=== PATIENT | female | born 1935 | race Caucasian/White ===

== ENCOUNTER 2024-02-09 13:26 | Inpatient (IN) | payer OTHER, SELFPAY ==
[2024-02-09] VITALS (29 sets, daily range): BP systolic 77–125; BP diastolic 36–93; PULSE 67–77; BMI 21.2; BMI 20.8
--- NOTE | 2024-02-09 10:09 | ED.GENMED ---
History of Present Illness
General
Chief Complaint: Heart Rate Problem
Time Seen by Provider: 02/09/24 09:24
History of Present Illness
History of Present Illness:
89-year-old female with history of hyperlipidemia presenting to the emergency department for episode of confusion, lightheadedness, diaphoresis. Symptoms occurred around 5 AM this morning when she got up to go to the bathroom. She tried to go back
to bed, however felt unwell. Denies any known cardiac history. She is not on any blood thinners. Denies associated chest pain or difficulty breathing. Denies any recent fever or illness. Denies abdominal pain or GI symptoms. Denies any
syncopal episode. Denies additional acute medical complaints
Past History
Past History
ED Past Medical History: None
Social History
Personal:
Living: with family
Phy Exam
Physical Exam
Physical Exam:
General: Well-appearing, no clinical signs of dehydration, nontoxic and in no acute distress
HEENT: protecting airway
Neck: appears supple
CV: Irregularly irregular rhythm, alternating between regular and tachycardia
Resp: No accessory muscle use, no increased work of breathing, lungs clear to auscultation bilaterally
Abd: Soft and non-distended, no tenderness to palpation, normal bowel sounds
Extremities: No deformities, no swelling, no erythema
Neuro: alert, no focal neurologic deficit
: deferred
Rectal: deferred
Psych: Normal affect
Skin: Intact
Scores
[id number] Score for Afib Stroke Risk
Age in Years (65=0, 65-74=1, >/=75=2): > or = 75
Sex (Female=+1): Female
Congestive Heart Failure History (Yes=+1): No
Hypertension History (Yes=+1): No
Stroke/TIA/Thromboembolism History (Yes=+2): No
Vascular Disease History (Yes=+1): No
Diabetes Mellitus (Yes=+1): No
Score: 3
Anticoagulation Recommendations: Recommend anticoagulation (as validated in nonvalvular fib)
Course
Orders/Labs/Results
Orders:
Orders
02/09/24 09:11
Electrocardiogram (*1) Urgent
Reason for Study: Palpitations
EKG- Treatment ONCE
02/09/24 09:51
CR Chest - 2 Views Urgent
Comment:
Reason For Exam: irregular HR
02/09/24 10:12
Complete Blood Count/With Diff Urgent
Comprehensive Metabolic Panel Urgent
Magnesium Urgent
NT-proBNP Urgent
PTT Urgent
Prothrombin Time Urgent
TSH Reflex To Free T4 Urgent
Comment: ADD ON
Troponin I Urgent
Diltiazem HCl [Cardizem] 14 mg IV NOW STA
02/09/24 11:03
0.9% Sodium Chloride 250 ml [Nss] 250 ml IV BOLUS
02/09/24 11:04
Add On- LAB Urgent
Tests Added?: TSH, reflex to T4
02/09/24 11:08
CT Head W/o Iv Contrast Urgent
Comment:
Reason For Exam: Confusion, visual disturbance
02/09/24 11:11
Diltiazem 125 mg/125 ml Nss [Cardizem] 125 mg in 125 ml IV NOW
Initial dose in mg/hr, then titrate:: 5
Titrate to keep:: Heart rate 80-100 bpm
Titrate by mg/hr:: 5 mg/hr
Frequency of titrations (minutes):: 15
Maximum dose in mg/hr:: 15
02/09/24 11:15
Apixaban [Eliquis] 2.5 mg PO BID
02/09/24 11:52
Echo 2D MMode Color/Doppler Routine
Reason for Study: New onset atrial fibrillation with RVR
Comment: Check rate prior to study, hold for tachycardia
02/09/24 11:54
Urine Culture Reflexed from UA [Urinalysis Reflex To Culture] Routine
02/09/24 12:30
Apixaban [Eliquis] 2.5 mg PO BID
02/09/24 16:00
Troponin I Routine
Abnormal Lab Results
02/09/24
10:12
WBC 3.2 L 10^3/uL
(4.8-10.8)
MCHC 32.4 L g/dL
(33.0-37.0)
RDW 14.6 H %
(11.5-14.5)
Absolute Lymphs (auto) 0.7 L 10^3/uL
(1.2-3.4)
Monocytes % 16.0 H %
(1.7-9.3)
BUN 21 H mg/dl
(7-17)
Creatinine 1.1 H mg/dL
(0.6-1.0)
Glucose 102 H mg/dl
(70-99)
Troponin I 0.038 H* ng/ml
02/09/24 10:12
02/09/24 10:12
Vital Signs
Initial and Last Documented VS:
Initial Vital Signs
Temp Pulse Resp BP Pulse Ox
97.8 F 55 18 77/52 97
02/09/24 09:12 02/09/24 09:12 02/09/24 09:12 02/09/24 09:12 02/09/24 09:12
Last Documented Vital Signs
Temp Pulse Resp BP Pulse Ox
97.8 F 133 21 83/63 93
02/09/24 09:12 02/09/24 11:30 02/09/24 11:30 02/09/24 11:30 02/09/24 11:30
MDM/Problems Addressed
MDM/Problems Addressed:
89-year-old female presenting to the emergency department for episode of confusion, diaphoresis, dizziness. Vital signs on arrival reported as bradycardia and hypotension, however on evaluation, tachycardic and normotensive.
On exam, patient is well-appearing, no acute distress. Patient appears to be in A-fib with RVR, likely etiology of symptoms. Patient notes that she felt normal yesterday, however her son notes some baseline confusion, so at this time do not feel
comfortable with timeline for cardioversion. Will consult with cardiology and administer diltiazem.
10:50 - Cardiology at bedside
11:50 -cardiology recommending diltiazem drip. Blood pressure was low, starting IV fluids. Also recommending CT brain given report episode of confusion this morning. Plan for admission for continued cardiac workup and monitoring.
*EKG
Interpreted by ED Provider?: Yes
EKG Intrepretation Date: 02/09/24
EKG Intrepretation Time: 01:49
Interpretation: abnormal
Comparison EKG: changes noted (10/28/11)
Heart Rate: 149
Rate: tachycardiac
Rhythm: a-fib (w/RVR)
Keldron: normal axis
Ischemia: no ischemia
*Critical Care Note
Total Time (30-74mins, 75-104mins- exclusive of procedures): 45
comment:
The high probability of a clinically significant, sudden or life threatening deterioration of the cardiovascular, A-fib with RVR system(s) required my full and direct attention, intervention and personal management. The aggregate critical care time
was 40 minutes. This time is in addition to time spent performing reported procedures but includes the following:
[x] Data Review and interpretation
[x] Patient assessment and monitoring of vital signs
[x] Documentation
[x] Medication orders and management
ED Attending Note
-
Portions of this chart may have been created with voice recognition software.� Occasional wrong word or��sound alike� substitutions may have occurred due to the inherent limitations of voice recognition software.
Discharge Plan
Departure
Patient Disposition: Admit
Date of Disposition: 02/09/24
Time of Disposition: 12:33
Presentation/result/management discussed w/ accepting MD/DO: Hospitalist
Condition: Fair
Discharge Problem:
Atrial fibrillation with RVR, Hypotension
Prescriptions:
No Action
naproxen sodium [Aleve] 220 MG tablet
2 tab PO
calcium carbonate-vitamin D3 [Calcium 600 + D(3)] 1 EACH capsule
1 ea PO DAILY
wwnhyrdp-arzs-osvjms-hyalur ac 1 CAP capsule
1 cap PO DAILY
Referrals:
Josiane Hodges MD [Family Provider] -
Interventions
Interventions:
*Risk Screen - Suicide Last Done: 02/09/24 09:50
*General Assessment Last Done: 02/09/24 09:46
*Neglect/Abuse Screening Last Done: 02/09/24 09:50
ED- Fall Risk Assessment Last Done: 02/09/24 09:46
*ED COVID-19 Vaccine History Last Done: 02/09/24 09:46
ED- Cardiac Assessment Last Done: 02/09/24 09:46
ED- Pulmonary Assessment Last Done: 02/09/24 09:46
Discharge Date and Time
Print Language: ARMENIAN
[2024-02-09 10:20] LABS: % Basophils 0.6 % (0-2); % Eosinophils 0.9 % (0-6); % Immature Granulocytes 0.3 % (0-0.5); % Neutrophils 61.2 % (42.2-75.2); Absolute Lymphocytes 0.7 10^3/uL (1.2-3.4); Absolute Monocytes 0.5 10^3/uL (0.1-0.6); Hematocrit 41.1 % (37.0-47.0); Hemoglobin 13.3 g/dL (12.0-16.0); Mean Corp Hgb Conc. 32.4 g/dL (33.0-37.0); Mean Corpuscular Hgb 28.1 pg (27.0-31.0); Mean Corpuscular Volume 86.9 fL (81.0-99.0); Nucleated Red Blood Cells % 0 %; Platelet Count 179 10^3/uL (130-400); Red Blood Cell Count 4.73 10^6/uL (4.20-5.40); Red Cell Dist. Width 14.6 % (11.5-14.5); White Blood Cell Count 3.2 10^3/uL (4.8-10.8)
--- NOTE | 2024-02-09 10:30 | CON.CAR ---
Addendum entered and electronically signed by Mat Sahni MD 02/11/24 09:15:
I saw and examined the patient.
The SECURITY REP's note was reviewed and I agree with the note.
Comment: 89-year-old female (seen by Dr. Kartik Gomez at [facility] in [address] Frankel in 2011), with statin intolerant dyslipidemia who presented to the emergency department with a chief complaint of confusion. She was found to be in AF RVR.
SHe was given diltiazem with spont CV to SR.
- Cont dilt
- Hospitalist w/u for confusion low BP
- TTE
Patient was seen and examined on 2023 this is a late addendum
Original Note:
Consultation
Consultation Request
Date/Time Consultation Requested: 02/09/2024 10:15
Date/Time Consultation Performed: 02/09/2024 10:30
Requesting Provider: Dr. Jeffery
Performing Provider: MARCUS Walker for Dr. Sahni
Reason for Consultation: Atrial fibrillation with rapid ventricular response
Medical History
-
Chief Complaint: Confusion
History of Present Illness:
Sandrine Grove is an 89-year-old female (seen by Dr. Kartik Gomez at [facility] in [address] Frankel in 2011), with statin intolerant dyslipidemia who presented to the emergency department with a chief complaint of confusion. She woke up at
approximately 5 AM and was disoriented. She thinks she woke up to use the bathroom. She endorsed diaphoresis and severe lightheadedness and a brief visual disturbance. This has resolved. When she arrived to the emergency department she was found
to be in atrial fibrillation with rapid ventricular response. On Thursday (three days ago), she endorsed significant abdominal cramping with diarrhea. Await BMP to rule out electrolyte disturbance.
Past Medical History
Past Medical History: Hypercholesterolemia
Social History
Tobacco: Non-Smoker
Alcohol: Occasional (1/2 glass of white wine once or twice a week)
Drug: None
Personal:
Living: With Family
Employment: Retired
Family History
Family History: Reviewed & Not Pertinent
Allergies / Home Medications
Allergy/AdvReac Type Severity Reaction Status Date / Time
Qgzanlc-LOB-MgY Reductase Allergy muscle Verified 10/27/11 11:14
Inhibitor aches
[Nalclcp-Lnh-Hfl Reductase
Inhibitor]
Sulfa (Sulfonamide Allergy blisters Verified 10/27/11 11:14
Antibiotics)
[Sulfa(Sulfonamide
Antibiotics)]
�Medication �Instructions �Recorded �Confirmed �Type
calcium 600 mg (as 1 ea PO DAILY 10/27/11 10/27/11 History
carbonate)-vitamin D3 5 mcg (200
unit) capsule (Calcium 600 + D(3))
glucosamin 375 mg-chond 300 1 cap PO DAILY 10/27/11 10/27/11 History
mg-collagen 50 mg-hyaluronic acid
2 mg cap
naproxen sodium 220 mg tablet 2 tab PO 10/27/11 10/27/11 History
(Aleve)
Review of Systems
-
History Source: Patient
All other systems: Negative unless noted
Constitutional: No Symptoms
EENT: No Symptoms
Respiratory: No Symptoms
Cardiac: Diaphoresis
Abdomen/GI: No Symptoms
: No Symptoms
Musculoskeletal: No Symptoms
Skin: No Symptoms
Neurological: Dizzy
Endocrine: No Symptoms
Hematologic/Lymphatic: No Symptoms
Physical Exam
Vital Signs
Temp Pulse Resp BP Pulse Ox
97.8 F 55 18 77/52 94
02/09/24 09:12 02/09/24 09:12 02/09/24 09:12 02/09/24 09:12 02/09/24 09:46
Lab Results
02/09/24 10:12
Physical Exam
General: Well Developed, Well Nourished, No Apparent Distress and Comfortable
HEENT: Normocephalic, Anicteric and Moist Mucous Membranes
Respiratory: Clear and Non Labored Respirations
Cardiac: S1/S2 and Irregular Rhythm
Breast: Deferred by me
GI: Soft, Non Tender, Non Distended and Normal Bowel Sounds
Rectal: Deferred by Provider
Genito-urinary: No Costovertebral Tender
Musculoskeletal: No Clubbing, No Cyanosis and No Edema
Skin: Warm and Dry
Neuro: AO x 3
Hematologic/Lymphatic: No Lymphadenopathy
Psych: Calm
Impression / Plan
-
Atrial fibrillation with right ventricular response, new
-Rates elevated, bolus given by ER, start diltiazem drip
-Oral Anticoagulation: Apixaban 2.5mg BID (age 89, weight < 60kg) after head CT, case management to check affordability
-[id number]: score at least 3 (age 75 or more, female gender)
-Echocardiogram when she is rate controlled
-TSH with reflex to T4
Confusion with visual disturbance, head CT pending
Abnormal troponin, nonischemic myocardial injury in the setting of tachyarrhythmia
-Trend to peak
-Chest pain-free
Dyslipidemia, statin intolerant
Data Reviewed
-
EKG: Report Reviewed by me (Atrial fibrillation with rapid ventricular response, ST changes in inferior and lateral leads, rate 149)
Labs: Labs Reviewed by me
Old Records: Reviewed
[2024-02-09 10:35] LABS: INR 1.07; PT 13.8 Sec (11.4-14.6)
[2024-02-09 10:36] LABS: APTT 30.2 Sec (23.4-35.0)
[2024-02-09 10:37] LABS: ALT (SGPT) 18 U/L (0-35); AST (SGOT) 33 U/L (14-36); Albumin 3.8 g/dl (3.5-5.0); Alkaline Phosphatase 74 U/L (38-126); Blood Urea Nitrogen 21 mg/dl (7-17); Calcium 9.1 mg/dl (8.4-10.2); Carbon Dioxide 30 mmol/L (22-30); Chloride 101 mmol/L (98-107); Estimated Creatinine Clearance 30 ml/min; Glucose 102 mg/dl (70-99); Potassium 4.2 mmol/L (3.5-5.1); Sodium 139 mmol/L (135-145); Total Bilirubin 0.6 mg/dl (0.2-1.3); Total Protein 6.4 g/dl (6.3-8.2); eGFR 48.03
[2024-02-09 10:50] LABS: NT-proBNP 959 pg/ml; Troponin I 0.038 ng/ml
[2024-02-09] MEDS: CARDIZEM 14 MG IV (10:50)
[2024-02-09] MEDS: NSS 250 IV (11:21)
[2024-02-09] MEDS: CARDIZEM 125 IV (11:33)
[2024-02-09 11:35] LABS: Magnesium 1.6 mg/dl (1.6-2.3)
[2024-02-09] MEDS: ELIQUIS 2.5 MG PO ×2 (12:57→20:08)
--- NOTE | 2024-02-09 12:57 | HPS.HSE ---
Family Physician
-
Family Physician: Josiane Hodges
Chief Complaint
-
Dizziness
History of Present Illness
Patient is an 89-year-old female without significant past medical history who presents with dizziness and confusion. Patient reports she woke up around 5 AM to use the bathroom. She states when she walked into the bathroom she could not find the
light switch, and felt disoriented. She felt dizzy and lightheaded. She denies any associated chest pains or palpitations. She denies any prior similar episodes. Upon arrival to the emergency department patient was found to have atrial
fibrillation with rapid ventricular response. Patient has any prior history of atrial fibrillation.
Medical History
Past Medical History
Past Medical History: Reports Other
Additional Past Medical History:
Hyperlipidemia
Heart Murmur
Anxiety
Arthritis
Past Surgical History: Reports Other
Additional Past Surgical History:
Right Breast Lumpectomy
Appendectomy
Bilateral Cataracts
Social History
Tobacco: Former Smoker (Quit over 40 years ago)
Alcohol: Occasional
Personal:
Living: With Family
Family History
Family History: Not pertinent
Allergies / Home Medications
Allergies reflects when Allergies were last updated in [employer].
Home Medications with original date entered in [employer]
Allergy/Medication List:
Allergies
Allergy/AdvReac Type Severity Reaction Status Date / Time
Ntcwatk-KXZ-KaN Reductase Allergy muscle Verified 10/27/11 11:14
Inhibitor aches
[Xnpvxhf-Ojy-Pjx Reductase
Inhibitor]
Sulfa (Sulfonamide Allergy blisters Verified 10/27/11 11:14
Antibiotics)
[Sulfa(Sulfonamide
Antibiotics)]
Home Medications
calcium 600 mg (as carbonate)-vitamin D3 5 mcg (200 unit) capsule (Calcium 600 + D(3)) 1 ea PO DAILY 12
escitalopram oxalate 5 mg tablet 5 mg PO Q2D 02/09/24
fenofibrate nanocrystallized 48 mg tablet 48 mg PO DAILY 02/09/24
therapeutic multivitamin 1 tab PO DAILY 02/09/24
Review of Systems
-
A 12 point ROS was completed and negative except as noted: Yes
Constitutional: Denies Fever or Chills
Respiratory: Denies Cough or Trouble Breathing
Cardiac: Denies Chest Pain or Palpitations
Abdomen/GI: Denies Abdominal Pain, Nausea, Vomiting or Diarrhea
Physical Exam
Vital Signs
Vital Signs
Temp Pulse Resp BP Pulse Ox
97.8 F 141 21 125/68 95
02/09/24 09:12 02/09/24 12:45 02/09/24 12:45 02/09/24 12:45 02/09/24 12:45
Physical Exam
General: Comfortable and Conversant
HEENT: Anicteric and Moist mucous membranes
Respiratory: Clear and Non Labored Respirations
Cardiac: S1/S2, Irregular Rhythm, Tachycardia and Murmur (3/6 Systolic Murmur)
GI: Soft and Non Tender
Rectal: Deferred by Provider
Musculoskeletal: No Clubbing, No Cyanosis and Other (Trace non-pitting edema bilateral lower extremities)
Skin: Warm and Dry
Neuro: Awake, Alert, Oriented and Nonfocal/grossly intact
Psych: Calm
Laboratory Results
-
02/09/24 10:12
02/09/24 10:12
Laboratory Results
PT 13.8 Sec (11.4-14.6) 02/09/24 10:12
INR 1.07 02/09/24 10:12
APTT 30.2 Sec (23.4-35.0) 02/09/24 10:12
Total Bilirubin 0.6 mg/dl (0.2-1.3) 02/09/24 10:12
AST 33 U/L (14-36) 02/09/24 10:12
ALT 18 U/L (0-35) 02/09/24 10:12
Alkaline Phosphatase 74 U/L (38-126) 02/09/24 10:12
Troponin I 0.038 ng/ml H* 02/09/24 10:12
Chest X-Ray:
No active cardiopulmonary disease.
Head CT:
There are no acute intracranial abnormalities.
There is mild diffuse cortical atrophy with mild nonspecific white matter changes as described above.
ECG: Atrial fibrillation with rapid ventricular response at 149 bpm
Data Reviewed
-
Diagnostic Radiology: Report Reviewed by me
CT Scan: Report Reviewed by me
Lab Data: Labs Reviewed by me
Impression/Plan
-
Atrial Fibrillation with Rapid Ventricular Response
-Consult Cardiology
-Start Eliquis for anticoagulation
-Continue diltiazem drip as BP allows
Elevated Troponin, likely non-ischemic myocardial injury in setting of a-fib with RVR
-Continue to trend troponin
Elevated Creatinine, unknown baseline
-Patient given small amount of IVFs in ED
-Monitor creatinine closely
Anxiety
-Continue Lexapro
Hyperlipidemia
-Continue fenofibrate
DVT Proph: Eliquis
Code Status: Full Code
--- NOTE | 2024-02-09 13:00 | EDRN ---
Patient converted to sinus rhythm. Repeat EKG done.
[2024-02-09 13:02] LABS: TSH Reflex To Free T4 0.84 uIU/ml (0.47-4.68)
--- NOTE | 2024-02-09 13:37 | W.PN.UPDATE ---
Update Note
Progress Note Update
This is an addendum to the H&P written by Polina Guadarrama on 02/09/2024. Patient seen and examined independently with PA. 89-year-old female past medical history of hyperlipidemia presenting with dizziness.
She was found to be in new onset atrial fibrillation with RVR heart rate of 140s and blood pressure. Chest x-ray unremarkable. Initially hypotensive with blood pressure in the 70s which improved with 250 cc IV fluid bolus. Started on Cardizem
drip with conversion to sinus. Check TSH. Nonischemic myocardial injury secondary to A-fib. Check echo. Eliquis started. Cardiology following.
Patient was noted to be confused in emergency room. CT head unremarkable. Confusion has resolved at this time and no signs of infection.
--- NOTE | 2024-02-09 14:07 | EDRN ---
Andres calvert d/c'rolly per Lorena VELAZQUEZ.
[2024-02-09] MEDS: CARDIZEM 60 MG PO ×2 (14:27→21:47)
[2024-02-09 14:30] LABS: Urine Albumin Trace (Neg - Trace); Urine Bilirubin Negative (Negative); Urine Character Slightly Cloudy (Clear); Urine Color Yellow; Urine Glucose Negative (Negative); Urine Ketone Negative (Negative); Urine Leukocyte Trace (Negative); Urine Nitrite Negative (Negative); Urine Occult Blood Negative (Negative); Urine Specific Gravity 1.015 (<1.030); Urine Urobilinogen Negative (Neg - 1+)
[2024-02-09 14:59] LABS: Urine Squamous Cell >30 /LPF (Few)
[2024-02-09 15:00] LABS: Urine Red Blood Cell 0-2 /HPF (0-2)
[2024-02-09 15:01] LABS: Urine Bacteria Few (Negative)
[2024-02-10] VITALS (12 sets, daily range): BP systolic 90–130; BP diastolic 38–58; PULSE 57–74; O2SAT 94–95; BMI 20.6
[2024-02-10] MEDS: CARDIZEM PO (03:09)
[2024-02-10] MEDS: NSS 250 IV (03:12)
[2024-02-10 04:34] LABS: Hematocrit 32.5 % (37.0-47.0); Hemoglobin 10.9 g/dL (12.0-16.0); Mean Corp Hgb Conc. 33.5 g/dL (33.0-37.0); Mean Corpuscular Hgb 29.3 pg (27.0-31.0); Mean Corpuscular Volume 87.4 fL (81.0-99.0); Mean Platelet Volume 10.1 fL (7.4-10.4); Platelet Count 158 10^3/uL (130-400); Red Blood Cell Count 3.72 10^6/uL (4.20-5.40); Red Cell Dist. Width 14.4 % (11.5-14.5); White Blood Cell Count 3.4 10^3/uL (4.8-10.8)
[2024-02-10 04:55] LABS: Blood Urea Nitrogen 24 mg/dl (7-17); Carbon Dioxide 27 mmol/L (22-30); Chloride 103 mmol/L (98-107); Estimated Creatinine Clearance 41 ml/min; Glucose 90 mg/dl (70-99); Sodium 137 mmol/L (135-145); eGFR > 60.00
--- NOTE | 2024-02-10 06:07 | PTCARENOTE ---
Pt with BP 93/41 with HR 57 and PlOx 88% on RA. Pt denies dizziness, lightheadedness or SOB. QUALITY CHECKER made aware. O2 2L applied with O2 improved to 93%. All safety measures in place, Pt instructed to use call ruby when OOB.
--- NOTE | 2024-02-10 07:06 | W.PN.HOSP.TC ---
Addendum entered and electronically signed by Fortunato Allen MD 02/10/24 14:27:
agree with resident
parox Afib. back in sinus.
-per Cards provide BB and eliquis (age/weight based dosing) on DC
outpt cardiology follow up
Original Note:
Today's Communication/Plan
-
Patient started on Eliquis 2.5 mg twice daily due to her age and weight. Patient will be discharged on Toprol 50 mg daily. Patient has been scheduled for outpatient follow-up with Lorena Harmon on February 25 at 11:20 at [facility]
cardiology's [place] office. We will move forward with discharge planning.
Assessment / Plan
Assessment / Plan
HPI: Patient is an 89-year-old female with a history of hyperlipidemia who presented to the emergency department with an episode of confusion, dizziness lightheadedness, and diaphoresis. Patient was in her normal state until around 5 AM the morning
prior to her presentation at the emergency department. She decided to get up to go to the bathroom and when she tried to go back to bed she felt unwell. She denies any known cardiac history and she is not on any blood thinners. She denied any
chest pain or difficulty breathing. She denied any recent fever or illness or abdominal pain or GI symptoms. She did not have any syncopal episode or fall. On examination in the emergency department the patient appeared to be in atrial
fibrillation with RVR. The patient stated that she felt normal yesterday however, her son noted some baseline confusion. Due to the uncertainty of the timeline for when this patient was in A-fib she was not a candidate for cardioversion.
Cardiology was consulted and diltiazem was administered. IV fluids were started as blood pressure was low. CT of the head was ordered for ongoing confusion. Patient was admitted to [facility] for atrial fibrillation with RVR.
Assessment/Plan:
- Atrial fibrillation with RVR:
An echocardiogram conducted on 02/09/2024 showed a left ventricular ejection fraction at 55 to 60%, asymmetric basal septal hypertrophy mitral annular calcification with thickened mitral valve leaflets. Mitral valve opens normally with mild mitral
regurgitation. A calcified aortic valve was seen. Tricuspid valve opens normally with mild tricuspid regurgitation. Estimated pulmonary artery pressure was 26 mmHg
Continue diltiazem IV drip and monitor blood pressure
EKG on 02/10/2024 showed that the patient converted to sinus rhythm
Appreciate cardiology consult
Elevated troponin at admission showing 1.130, we will continue to trend - Currently 0.678 on 02/10/2024 trending downward
Patient started on Eliquis 2.5 mg twice daily due to her age and weight.
Patient will be discharged on Toprol 50 mg daily
Patient has been scheduled for outpatient follow-up with Lorena Harmon on February 25 at 11:20 at [facility] cardiology's [place] office
-CARY versus CKD, unknown baseline renal function:
Patient's creatinine was elevated on admission at 1.1 and is now currently 0.8
Assess baseline creatinine
-Hypotension:
Patient was hypotensive upon presentation to the emergency department in the 70s
IV fluid support
-Confusion:
Patient was noted to be confused in the emergency room.
CT of the head showed no acute intracranial abnormalities.
Confusion has resolved
-Anxiety:
Continue escitalopram
-Hyperlipidemia:
Continue fenofibrate 48 mg
DVT prophylaxis: Eliquis
FULL CODE STATUS
Anticipated Discharge: Today
Subjective/Interval History
-
Date of Service: February 10, 2024
Met with patient at the bedside. Overall, she is in a calm and pleasant mood and offers no complaints at the present time. She believes she is ready to go home and is back at her baseline. She was offered some counseling and education as to the
need for following up with a research librarian in the outpatient setting.
Objective Data
-
Labs:
Laboratory Results
02/10/24
04:02
WBC 3.4 L
Hgb 10.9 L
Hct 32.5 L
Plt Count 158
Sodium 137
Potassium 4.0
Chloride 103
Carbon Dioxide 27
BUN 24 H
Creatinine 0.8
Glucose 90
Calcium 8.0 L
Vital Signs:
Vital Signs
Temp Pulse Resp BP Pulse Ox
98.9 F 55 16 92/38 86
02/10/24 02:27 02/10/24 06:00 02/10/24 02:27 02/10/24 04:59 02/10/24 04:59
I&O
02/09/24 02/10/24 02/11/24
06:59 06:59 06:59
Intake Total 250 / 250
Balance 250 / 250
Review of Systems
-
History Source: Patient
Constitutional: Reports No Symptoms
EENT: Reports No Symptoms Reported
Respiratory: Reports No Symptoms
Cardiac: Reports No Symptoms
Abdomen/GI: Reports No Symptoms
Breast: Reports No Symptoms
Genitourinary: Reports No Symptoms
Musculoskeletal: Reports No Symptoms
Skin: Reports No Symptoms
Neuro: Reports No Symptoms
Endocrine: Reports No Symptoms
Hematologic / Lymphatic: Reports No Symptoms
Physical Exam
-
General: Well Developed, Well Nourished, No Apparent Distress and Comfortable
HEENT: Normocephalic, Atraumatic and Moist Mucous Membranes
Respiratory: Clear to Auscultation
Cardiac: Murmur (Loud systolic blowing murmur over the aorta. Systolic regurgitant murmurs heard over the tricuspid and mitral valves)
Breast: Deferred by me
GI: Soft, Nontender, Nondistended and Normal Bowel Sounds
Rectal: Deferred by Provider
Genito-urinary: Deferred by me
Musculoskeletal: No Clubbing, No Cyanosis and No Edema
Skin: Warm and Dry
Neuro: Awake, Alert, Oriented and AO x 3
Psych: Calm
[2024-02-10] MEDS: TRICOR 48 MG PO (09:31)
[2024-02-10] MEDS: ELIQUIS 2.5 MG PO (09:31)
[2024-02-10] MEDS: CARDIZEM 60 MG PO (09:31)
[2024-02-10] MEDS: LEXAPRO 5 MG PO (09:35)
--- NOTE | 2024-02-10 09:52 | W.PN.CD ---
Today's Communication / Plan
-
OK for home on
- Eliquis 2.5 BID and will use metoprolol ER 50 mg daily
Mod will be followed as outpatient
I reviewed the risk/benefits of Eliquis and the signs and symptom of GI bleeding and ICH
We will arragne f/u in our office
Impression / Plan
-
AFib RVR
- Paroxysmal, conveted to sinus yesterday
- Sinus rates are fine
- Oral Anticoagulation: Apixaban 2.5mg BID (age 89, weight < 60kg) after head CT, case management to check affordability
- [id number]: score at least 3 (age 75 or more, female gender)
- TSH normal
Troponin elevation from rapid AFib with non-ischemic myocardial injury
Moderate aortic stenosis
Confusion improved, but is there some baseline memory issues, defer to primary service
Dyslipidemia
Statin intolerant
Subjective:
Feels well. Eager for home.
Physical Exam
Vital Signs/Labs
Vital Signs
Temp Pulse Resp BP Pulse Ox
98.5 F 71 18 102/52 99
02/10/24 08:04 02/10/24 09:31 02/10/24 08:04 02/10/24 09:31 02/10/24 07:30
02/09/24 02/10/24 02/11/24
06:59 06:59 06:59
Actual Weight 54.4 kg
02/10/24 04:02
02/10/24 04:02
PT 13.8 Sec (11.4-14.6) 02/09/24 10:12
INR 1.07 02/09/24 10:12
APTT 30.2 Sec (23.4-35.0) 02/09/24 10:12
Magnesium 1.6 mg/dl (1.6-2.3) 02/09/24 10:12
02/09/24
10:12
Pih-A-Ayplmwxfunu Pept 959
LAB Results
02/09/24 02/09/24 02/09/24
10:12 16:11 21:52
Troponin I 0.038 H* 1.030 H* D 1.310 H* D
02/10/24
04:02
Troponin I 1.130 H*
Physical Exam
Constitutional: No acute distress
EENT: Anicteric
Cardiovascular: Rhythm & rate is regular, Pedal edema is absent and Systolic murmur present (c/w mod )
Respiratory: Respiratory effort normal and Lungs clear to auscul.
GI: Soft and Distention absent
Neuro/Psych: Alert
Data Reviewed
-
Date of Service: February 10, 2024
--- NOTE | 2024-02-10 10:27 | CM ---
Darshan Lentz thru patient's insurance, ; estimated co pay for 30 d supply would be $47.
I will provide a free [address] in DC section of chart.
[2024-02-10] MEDS: TOPROL XL 50 MG PO (10:35)
[2024-02-10 11:16] LABS: Troponin I 0.687 ng/ml
--- NOTE | 2024-02-10 11:49 | CM ---
CM following for DC planning needs.
Met w/ patient and spouse at bedside to complete initial assessment.
Pt. resides in a private, 3 story home w/ spouse. Functionally, patient is indep. w/ ADLs, mobility without the use of any assisted device.
Pt. has RX plan and uses [facility] in [place].
Reviewed estimated cost of Eliquis w/ patient/spouse. Encouraged her to speak w/ Product Marketing Director with any concerns.
Coupon placed in patient's chart for free 30 d supply.
There are no anticipated DC needs.
CM to follow.
--- NOTE | 2024-02-10 12:12 | PTOTSP ---
PATIENT ABLE TO MOBILIZE INDEPENDENTLY ON LEVEL SURFACES WELL ELEVATIONS REQUIRING NO FURTHER ACUTE CARE SKILLED P.T. AT THIS TIME. WILL DISCHARGE FROM P.T. SERVICES.
--- NOTE | 2024-02-10 14:01 | W.DCSUMMARY ---
Addendum entered and electronically signed by Fortunato Allen MD 02/11/24 14:18:
Baseline Dementia
freddie
Original Note:
Documented by User: Delio Germain MD, Resident 02/10/24 14:14
Discharge Summary
Discharge Data
Date of Admission: 02/09/24
Date of Discharge: 02/10/24
-
Pending Results: No
Hospital Course
Patient is an 89-year-old female with a history of hyperlipidemia who presented to the emergency department with an episode of confusion, dizziness lightheadedness, and diaphoresis. Patient was in her normal state until around 5 AM the morning
prior to her presentation at the emergency department. She decided to get up to go to the bathroom and when she tried to go back to bed she felt unwell. She denies any known cardiac history and she is not on any blood thinners. She denied any
chest pain or difficulty breathing. She denied any recent fever or illness or abdominal pain or GI symptoms. She did not have any syncopal episode or fall. On examination in the emergency department the patient appeared to be in atrial
fibrillation with RVR. The patient stated that she felt normal yesterday however, her son noted some baseline confusion. Due to the uncertainty of the timeline for when this patient was in A-fib she was not a candidate for cardioversion.
Cardiology was consulted and diltiazem IV was administered. IV fluids were started as blood pressure was low for hemodynamic support. CT of the head was ordered for ongoing confusion. Patient was admitted to [facility] for atrial
fibrillation with RVR.
Her confusion has completely resolved. Echocardiogram conducted on 02/09/2024 showed a left ventricular ejection fraction at 55 to 60%, asymmetric basal septal hypertrophy mitral annular calcification with thickened mitral valve leaflets. Mitral
valve opens normally with mild mitral regurgitation. A calcified aortic valve was seen. Tricuspid valve opens normally with mild tricuspid regurgitation. Estimated pulmonary artery pressure was 26 mmHg. Patient was started on a diltiazem IV. A
repeat EKG on 02/10/2024 showed that the patient converted back to sinus rhythm. Cardiology followed this patient throughout her hospital stay and recommended that the patient follow-up with them in the outpatient setting. She has been scheduled
for an outpatient follow-up with Lorena Harmon on February 25 at 11:20 at [facility]'s [place] office. Patient was started on 2.5 mg twice daily of Eliquis due to her age and weight. IV Cardizem was stopped after the
patient returned to sinus rhythm. She is was started on Toprol 50 mg daily.
The patient has reached maximal benefit from this hospital stay and is appropriate for discharge at the present time. There are no barriers preventing this patient from being safely discharged at this time. Cardiology recommends the patient
follow-up with them in the outpatient setting on February 25 at 11:20 in the morning at [facility] [place] office. The patient is appropriate for follow-up in the outpatient setting by her primary care provider.
Discharge Plan
-
Patient Disposition: Home (Routine Discharge)
Discharge Diagnosis/Procedures: Atrial fibrillation with rapid ventricular response
Condition: Good
Diet: Low Sodium
Activity: No restrictions
Driving Restrictions: As prior to admission
Referrals:
Josiane Hodges MD [Family Provider] - in one to two weeks
Ranjit Bush MD [Active] - in one to two weeks (Patient is scheduled to meet with Lorena Harmon at [facility] on February 25 at 11:20 at the [place] office)
Additional Discharge Medication Instructions: Patient is scheduled to meet with Lorena Harmon at [facility] on February 25 at 11:20 at the [place] office. Patient started on Eliquis 2.5 mg twice daily. Patient will also be taking
Toprol 50 mg daily.
Prescriptions:
New
Eliquis 2.5 mg Tablet
2.5 mg PO BID 30 Days Qty: 60 0RF
metoprolol succinate 50 mg Tablet Extended Release 24 Hr
50 mg PO DAILY 30 Days Qty: 30 0RF
Continued
Calcium 600 + D(3) 1 EACH capsule
1 ea PO DAILY
therapeutic multivitamin Tablet
1 tab PO DAILY
escitalopram oxalate 5 mg tablet
5 mg PO Q2D
fenofibrate nanocrystallized 48 mg tablet
48 mg PO DAILY
Discharge Orders:
Discharge Patient (As Directed); Ordered 02/10/24
Ordered By: Delio Germain
Care Plan Goals
Care Plan Goals:
Problem: Readiness for enhanced knowledge related to diagnosis and treatment plan
Goal: Understand your diagnosis and treatment plan needs, including medications if applicable.
Instructions: Know your diagnosis, underlying causes and treatment plan options, including medications if applicable. Consult with your health care team to learn about your diagnosis and treatment plan, including medications if applicable.
Discharge Date and Time
Print Language: [place]AST [place]

Documented by User: Fortunato Allen MD 02/10/24 14:26
Discharge Summary
Discharge Data
Date of Admission: 02/09/24
Date of Discharge: 02/10/24
Discharge Plan
-
Patient Disposition: Home (Routine Discharge)
Discharge Diagnosis/Procedures: Atrial fibrillation with rapid ventricular response
Condition: Good
Diet: Low Sodium
Activity: No restrictions
Driving Restrictions: As prior to admission
Referrals:
Josiane Hodges MD [Family Provider] - in one to two weeks
Ranjit Bush MD [Active] - in one to two weeks (Patient is scheduled to meet with Lorena Harmon at [facility] on February 25 at 11:20 at the [facility])
Additional Discharge Medication Instructions: Patient is scheduled to meet with Lorena Harmon at [facility] on February 25 at 11:20 at the [facility]. Patient started on Eliquis 2.5 mg twice daily. Patient will also be taking
Toprol 50 mg daily.
Prescriptions:
New
Eliquis 2.5 mg Tablet
2.5 mg PO BID 30 Days Qty: 60 0RF
metoprolol succinate 50 mg Tablet Extended Release 24 Hr
50 mg PO DAILY 30 Days Qty: 30 0RF
Continued
Calcium 600 + D(3) 1 EACH capsule
1 ea PO DAILY
therapeutic multivitamin Tablet
1 tab PO DAILY
escitalopram oxalate 5 mg tablet
5 mg PO Q2D
fenofibrate nanocrystallized 48 mg tablet
48 mg PO DAILY
Discharge Orders:
Discharge Patient (As Directed); Ordered 02/10/24
Ordered By: Delio Germain
Care Plan Goals
Care Plan Goals:
Problem: Readiness for enhanced knowledge related to diagnosis and treatment plan
Goal: Understand your diagnosis and treatment plan needs, including medications if applicable.
Instructions: Know your diagnosis, underlying causes and treatment plan options, including medications if applicable. Consult with your health care team to learn about your diagnosis and treatment plan, including medications if applicable.
Discharge Date and Time
Print Language: [place]
--- NOTE | 2024-02-11 12:14 | PN.CDI ---
CDI
- -
CDI:
Physician Documentation Request
Admit Date: 02/09/24 13:26
Dear Doctor,
Please review the following and provide your response in the progress notes.
Clinical Indicators:
- 02/08 ER Physician 'presenting to the emergency department for episode of confusion, lightheadedness, diaphoresis'
- 02/09 PN 'Confusion'
- CT Head with no acute abnormalities
- 02/09 DC Summary 'she felt normal yesterday however, her son noted some baseline confusion'
- 'Her confusion has completely resolved'
Please clarify which, if any of the following, is the most likely etiology of the confusion/altered mental status.
Encephalopathy - indicate type, such as metabolic, toxic, septic, alcoholic, anoxic, hypertensive etc. due to a specific condition such as UTI, CVA, hyponatremia etc.
Acute Delirium - indicate known or suspected etiology such as postoperative, due to opioids or other drugs etc. Can also indicate unknown or mixed etiologies.
Baseline Dementia - indicate type, such as Alzheimer's, senile, vascular, Lewy body etc., and any associated behavioral disturbances (aggressive, combative or violent behavior) if present
Acute or subacute confusional state due to (specify known or suspected etiology)
Other
Use of terms such as suspected, likely, concern for, or probable (associated with a specific diagnosis that is being evaluated, monitored, or treated as if it exists) are acceptable and can be coded in the inpatient setting, when documented at the
time of discharge.
Thank you,
Mandeep Bentley RN
CDI Specialist
Please use your independent medical judgment in providing your response.
--- NOTE | 2024-02-11 12:20 | PN.CDI ---
CDI
- -
CDI:
Physician Documentation Request
Admit Date: 02/09/24 13:26
Dear Doctor,
Please review the following and provide your response in the progress notes.
Clinical Indicators:
- 02/09 PN 'CARY versus CKD, unknown baseline renal function'
Laboratory Tests
02/09/24 02/10/24
10:12 04:02
Creatinine 1.1 H 0.8
eGFR 48.03 > 60.00
Please clarify which of the following accurately represents the patient's renal status:
CARY on CKD 2
CKD 3
Other
Criteria for CARY*
1 Increase in serum creatinine by > or = to 0.3 mg/dL (> or = to 26.5 micromol/L) within 48 hours, OR
2 Increase in serum creatinine to > or = to 1.5 times baseline, which is known or presumed to have occurred within 7 days, OR
3 Urine volume < 0.5 nL/kg/hour for six hours
Stages of Chronic Kidney Disease*
Level Description GFR
G1 Normal or High >90
G2 Mildly decreased 60-89
G3a Mildly to moderately decreased 45-59
G3b Moderately to severely decreased 30-44
G4 Severely decreased 15-29
G5 Kidney failure <15
Use of terms such as suspected, likely, concern for, or probable (associated with a specific diagnosis that is being evaluated, monitored, or treated as if it exists) are acceptable and can be coded in the inpatient setting, when documented at the
time of discharge.
Thank you,
Mandeep Bentley RN
CDI Specialist
Please use your independent medical judgment in providing your response.
*Source: Kidney Disease: Improving Global Outcomes (KDIGO) 2012
== END 2024-02-10 15:52 | disposition home or self-care (01) | DRG 309 ==
LOC: IVU 13:26
PROVIDERS: Nurse Practitioner Family; Nurse Practitioner Gerontology; Physician Assistant Medical; ADMITTING PHYSICIAN Hospitalist; ATTENDING PHYSICIAN Hospitalist; CONSULT PHYSICIAN Internal Medicine Cardiovascular Disease; EMERGENCY PHYSICIAN Student in an Organized Health Care Education/Training Program; FAMILY PHYSICIAN Internal Medicine
DX: I48.91 Unspecified atrial fibrillation (principal); F03.94 Unspecified dementia, unspecified severity, with anxiety; I5A Non-ischemic myocardial injury (non-traumatic); N17.9 Acute kidney failure, unspecified; I08.3 Combined rheumatic disorders of mitral, aortic and tricuspid valves; E78.00 Pure hypercholesterolemia, unspecified; M19.90 Unspecified osteoarthritis, unspecified site; R41.0 Disorientation, unspecified; Z79.899 Other long term (current) drug therapy; Z87.891 Personal history of nicotine dependence; Z88.2 Allergy status to sulfonamides
CPT/HCPCS: 70450; 71046; 80048; 80053; 81003; 81015; 83735; 83880; 84443; 84484; 85025; 85027; 85610; 85730; 93005; 93306; 96361; 96374; 96376; 97116; 97162; 97166; 99291